=== PATIENT | male | born 1940 | race Caucasian/White ===

== ENCOUNTER → 2020-03-21 | Outpatient (CLI) | payer MEDICARE ==
[~2020-03-21] MED LIST: ASPIRIN 32325 MG/TA1 PO; FISH OIL CONC1000 MG PO; VITAMIN C500 MG PO
== END ==
LOC: COL.RAD 07:27
DX: K76.9 Liver disease, unspecified (principal)

== ENCOUNTER → 2020-04-01 | Outpatient (CLI) | payer MEDICARE | LOC: COL.RAD 07:26 | DX: Z01.812 Encounter for preprocedural laboratory examination (principal); J98.59 Other diseases of mediastinum, not elsewhere classified; C78.7 Secondary malignant neoplasm of liver and intrahepatic bile duct; C80.1 Malignant (primary) neoplasm, unspecified; R59.0 Localized enlarged lymph nodes; R91.8 Other nonspecific abnormal finding of lung field; R18.8 Other ascites | CPT/HCPCS: Q9967 ==

== ENCOUNTER → 2020-04-09 | Outpatient (CLI) | payer MEDICARE ==
[~2020-04-09] VITALS: Ht 175.4 cm; Wt 72.4 kg
[2020-04-09] VITALS (18 sets, daily range): BP systolic 110–162; BP diastolic 54–111; PULSE 82–97
[~2020-04-09] MED LIST changes: +ALEVE 220MG220 MG PO
[2020-04-09 13:16] LABS: PROTHROMBIN TIME 11.6 SECONDS (9.7-12.8)
== END ==
LOC: COL.RAD 12:00
PROVIDERS: Internal Medicine
DX: J98.59 Other diseases of mediastinum, not elsewhere classified (principal)
CPT/HCPCS: J2250; J3010